=== PATIENT | male | born 1975 | race Caucasian/White ===

== ENCOUNTER 2022-08-19 16:17 | Emergency (ER) | payer MEDICAID, SELFPAY ==
[2022-08-19 16:28] VITALS: BP 136/116; PULSE 102; RESP 15; O2SAT 98
--- NOTE | 2022-08-19 16:46 | NUR.NOTE ---
Nursing Note: EMT-P Emilio Manuel. PT assessed for initial triage and bandaged. After applying a bandage the PT stated that he would like to go out for a smoke. After returning the PT stated that he had a ride coming and that he was not interested in seeking further care at this facility. After advising the PT as to the risks of refusing assessment and care the PT stated again that he did not want to stay and ambulated from the ED. PT left prior to seeing a provider.
== END 2022-08-19 16:45 | disposition left against medical advice (07) ==
LOC: ER 16:28
PROVIDERS: Emergency Provider Emergency Medicine; PCP Registered Nurse
DX: Z53.21 Procedure and treatment not carried out due to patient leaving prior to being seen by health care provider (principal)